=== PATIENT | male | born 1955 | race Caucasian/White ===

== ENCOUNTER 2024-02-26 07:56 | Emergency (ER) | payer MEDICARE ==
[~2024-02-26] VITALS: Ht 193 cm; Wt 81.6 kg
[2024-02-26 08:39] VITALS: BP 138/74; TEMP 98.2; O2SAT 98
[2024-02-26] MEDS ORDERED: CLIN300C12 PO (08:41)
== END 2024-02-26 09:09 | disposition home or self-care (01) ==
LOC: ER 08:39
DX: L03.011 Cellulitis of right finger (principal); M79.644 Pain in right finger(s); Z88.2 Allergy status to sulfonamides
CPT/HCPCS: 99283; 10060; A6403

== ENCOUNTER 2024-03-01 13:46 | Emergency (ER) | payer MEDICARE ==
[~2024-03-01] VITALS: Ht 193 cm; Wt 77.1 kg
[~2024-03-01 13:46] MED LIST: CLIN300C12 PO
[2024-03-01 13:57] VITALS: TEMP 98.5
[2024-03-01] MEDS ORDERED: CIPR10DR RIGHT EAR (15:59)
[2024-03-01 16:11] VITALS: BP 126/75; O2SAT 100
== END 2024-03-01 16:12 | disposition home or self-care (01) ==
LOC: ER 14:01
DX: H92.01 Otalgia, right ear (principal); E78.5 Hyperlipidemia, unspecified; Z88.2 Allergy status to sulfonamides; Z88.8 Allergy status to other drugs, medicaments and biological substances

== ENCOUNTER 2024-03-09 10:50 | Emergency (ER) | payer MEDICARE ==
[~2024-03-09] VITALS: Ht 193 cm; Wt 81.6 kg
[~2024-03-09 10:50] MED LIST changes: +CIPR10DR RIGHT EAR
[2024-03-09] MEDS ORDERED: LIDO30AD10 TP (12:57)
[2024-03-09] MEDS ORDERED: IBUP-1955 PO (12:57)
[2024-03-09] MEDS: LIDOCAINE 5% (PATCH) 1 EA PATCH TP SCH (13:14)
[2024-03-09] MEDS: IBUPROFEN 600 MG TABLET PO ONE (13:14)
[2024-03-09 13:22] VITALS: BP 138/66; TEMP 97.9; O2SAT 99
== END 2024-03-09 13:23 | disposition home or self-care (01) ==
LOC: ER 10:57
DX: S33.5XXA Sprain of ligaments of lumbar spine, initial encounter (principal); Z88.2 Allergy status to sulfonamides; Z88.8 Allergy status to other drugs, medicaments and biological substances; W01.0XXA Fall on same level from slipping, tripping and stumbling without subsequent striking against object, initial encounter; Y92.410 Unspecified street and highway as the place of occurrence of the external cause; Y93.01 Activity, walking, marching and hiking
CPT/HCPCS: 72110-TC; 73502; 73564-TC; 73610-TC